=== PATIENT | female | born 1965 | race Caucasian/White ===

== ENCOUNTER 2022-02-21 02:29 | Inpatient (IN) ==
[2022-02-21] MEDS ORDERED: ONDANSETRON 4 MG/2 ML VIAL IV STA (02:49)
[2022-02-21] MEDS ORDERED: PANTOPRAZOLE 40 MG VIAL IV STA (02:49)
[2022-02-21] MEDS ORDERED: SODIUM CHLORIDE 0.9% 2,000 ML IV STA (02:49)
[2022-02-21 03:37] LABS: Bacteria,Urine Occasional /HPF (Few); Glucose,Urine (UA) 100 mg/dL (Negative); Hyaline Casts,Urine 17 /LPF (0-3); Ketones,Urine 15 mg/dL (Negative); Mucus,Urine Few /LPF (Occasional); Nitrite,Urine Positive (Negative); Protein,Urine 30 mg/dL (Negative); RBC,Urine 1 /HPF (0-4); Squamous Epithelial Cell,Urine Occasional /HPF (0-10); Urine Appearance Slightly Cloudy (Clear); Urine Color DK (Yellow)
[2022-02-21 03:38] LABS: Bilirubin,Urine Moderate mg/dL (Negative); Blood, Urine Trace mg/dL (Negative)
[2022-02-21 03:50] LABS: Hemoglobin 11.7 GM/DL (12.0-16.0); Immature Granulocytes % 0.5 %; Immature Granulocytes Absolute 0.01 #; Lymphocytes # 0.6 10*3/uL (1.4-4.0); Lymphocytes % 30.1 % (21.3-54.2); Mean Corpuscular HGB Conc 29.2 GM/DL (32-36); Mean Corpuscular Volume 106.9 FL (87-102); Mean Platelet Volume 12.1 FL (9.6-12.0); Monocytes # 0.1 10*3/uL (0.11-0.8); Monocytes % 5.2 % (1.7-12.7); Neutrophils % 63.2 % (38.7-73.9); Platelet Count 81 T/CUMM (130-400); Red Blood Count 3.75 MC/CUMM (3.8-5.5); Red Cell Distribution Width 14.6 % (9.3-17.3); White Blood Count 1.9 T/CUMM (4-12)
[2022-02-21 03:50] LABS: Barbiturates Screen,Urine Negative (Negative); Benzodiazepines Screen,Urine Negative (Negative); Cannabinoid Screen,Urine Negative (Negative); Opiate Screen,Urine Positive (Negative); Phencyclidine Screen,Urine Negative (Negative)
[2022-02-21] MEDS ORDERED: SODIUM CHLORIDE 0.9% 1,700 ML IV ONE (03:50)
[2022-02-21 03:51] LABS: Hematocrit 40.1 VOL% (35.7-47.0)
[2022-02-21 03:55] LABS: Alanine Aminotransferase 25 U/L (13-56); Albumin 2.6 G/DL (3.4-5.0); Alkaline Phosphatase 74 U/L (45-117); Amylase 34 U/L (25-115); Aspartate Amino Transferase 39 U/L (0-37); Blood Urea Nitrogen 23 MG/DL (7-18); Calcium 8.5 MG/DL (8.5-10.1); Carbon Dioxide 18 MMOL/L (21-32); Chloride 109 MMOL/L (98-107); Glucose 114 MG/DL (74-106); Osmolality,Calculated 281.5 MOS/KG (273-304); Potassium 3.6 MMOL/L (3.5-5.1); Sodium 139 MMOL/L (136-145)
[2022-02-21 03:57] LABS: Band Neutrophils 8 % (0-10); Eosinophils 1 % (0-10); Lymphocytes 30 % (20-55); Total Cells Counted 100
[2022-02-21 03:58] LABS: Giant Platelets Few; Platelet Estimate Decreased
[2022-02-21 03:59] LABS: Macrocytosis Slight
[2022-02-21] MEDS ORDERED: PIPERACILLIN/TAZOBACTAM 3,375 MG in SODIUM CHLORIDE 0.9% 100 ML IV SCH ×2 (04:00→12:00)
[2022-02-21] MEDS ORDERED: MAGNESIUM SULF RIDER 2 GM/50 ML PREMIX IV STA (04:00)
[2022-02-21 04:18] LABS: INR 1.5; PT Patient Result 15.7 SECS (10.5-12.0)
[2022-02-21] MEDS ORDERED: GLUCAGON 1 MG VIAL IM PRN (05:24)
[2022-02-21] MEDS ORDERED: ONDANSETRON 4 MG/2 ML VIAL IV PRN (05:24)
[2022-02-21] MEDS ORDERED: ACETAMINOPHEN 325 MG TABLET PO PRN (05:24)
[2022-02-21] MEDS ORDERED: DEXTROSE 10% 250 ML BAG IV PRN ×2 (05:24→15:42)
[2022-02-21 05:30] LABS: Arterial Base Excess iSTAT -13 MMOL/L (-2.5-2.5); Arterial Bicarbonate iSTAT 10.8 MMOL/L (20-26); Arterial O2 Saturation iSTAT 91 % (95-100); Arterial PCO2 iSTAT 20 MM HG (35-48); Arterial PO2 iSTAT 63 MM HG (80-95); Arterial Total CO2 iSTAT 11 MMO/L (23-27); Arterial pH iSTAT 7.335 (7.35-7.45)
[2022-02-21] MEDS ORDERED: SODIUM CHLORIDE 0.9% 1,000 ML IV SCH (05:30)
[2022-02-21 05:34] LABS: Hepatitis B Core IgM Quant < 0.05 Index; Hepatitis B Surface Ag Quant < 0.10 Index; Hepatitis B Surface Ag Result Non-Reactive (NonReactive); Hepatitis C Virus Ab Quant > 11.00 Index; Hepatitis C Virus Ab Result Reactive (NonReactive)
[2022-02-21] MEDS ORDERED: SODIUM BICARBONATE 50 MEQ/50 ML VIAL IV ONE ×6 (06:24→17:12)
[2022-02-21] MEDS ORDERED: VANCOMYCIN INJ 1,000 MG in SODIUM CHLORIDE 0.9% 250 ML IV SCH (09:00)
[2022-02-21] MEDS ORDERED: ETOMIDATE 20 MG/10 ML VIAL IV ONE (09:51)
[2022-02-21] MEDS ORDERED: ROCURONIUM 100 MG/10 ML VIAL IV ONE (09:52)
[2022-02-21] MEDS ORDERED: METOPROLOL TARTRATE 5 MG/5 ML VIAL IV ONE (09:53)
[2022-02-21] MEDS ORDERED: ceFAZolin 2,000 MG/50 ML DUPLEX IV SCH (10:30)
[2022-02-21] MEDS ORDERED: MIDAZOLAM 100 MG in SODIUM CHLORIDE 0.9% 80 ML IV PRN (10:53)
[2022-02-21 11:45] LABS: ABG Base Excess -13.5 MMOL/L (-2.5-2.5); ABG HCO3 13.9 MMOL/L (20-26); ABG Oxygen Saturation 97.1 % (95-100); ABG PH 7.224 (7.35-7.45); ABG PO2 99.3 MM HG (80-95); ABG TCO2 12.3 MMOL/L (23-27)
[2022-02-21] MEDS: PHENYLEPHRINE DRIP 40 MG/250 ML PREMIX IV PRN ×3 (12:45→17:30)
[2022-02-21] MEDS: VANCOMYCIN 50 MG/ML 60 ML/BOTTLE NG SCH ×2 (13:00→19:01)
[2022-02-21] MEDS: metroNIDAZOLE INJ 500 MG/100 ML PREMIX IV SCH ×2 (13:30→21:32)
[2022-02-21] MEDS: SODIUM BICARB INJ 150 MEQ in STERILE WATER INJ 850 ML IV SCH (14:00)
[2022-02-21] MEDS ORDERED: NOREPINEPHRINE 4 MG/4 ML VIAL IV ONE ×2 (14:14→18:56)
[2022-02-21] MEDS: NOREPINEPHRINE 8 MG in SODIUM CHLORIDE 0.9% 242 ML IV PRN ×2 (14:15→18:57)
[2022-02-21] MEDS ORDERED: SODIUM CHLORIDE 0.9% 500 ML IV ONE (14:17)
[2022-02-21 14:24] LABS: ABG Base Excess -14.8 MMOL/L (-2.5-2.5); ABG Oxygen Saturation 83.6 % (95-100); ABG PCO2 29.2 MM HG (35-48); ABG PO2 53.7 MM HG (80-95); ABG TCO2 11.1 MMOL/L (23-27); Hemoglobin Heart Surgery 10.4 G/DL (12.0-16.0); Potassium Heart/CVR 4.2 MMOL/L (3.5-5.1)
[2022-02-21] MEDS ORDERED: DEXTROSE 50% 25 GM/50 ML SYRINGE IV ONE ×4 (14:31→19:15)
[2022-02-21] MEDS: HYDROCORTISONE 100 MG VIAL IV SCH ×3 (14:35→20:25)
[2022-02-21] MEDS ORDERED: HYDROCORTISONE 100 MG VIAL IV SCH (15:00)
[2022-02-21 15:04] LABS: Arterial Bicarbonate iSTAT 16.5 MMOL/L (20-26); Arterial pH iSTAT 7.236 (7.35-7.45)
[2022-02-21 16:52] LABS: ABG Base Excess -17.4 MMOL/L (-2.5-2.5); ABG HCO3 11.3 MMOL/L (20-26); ABG Oxygen Saturation 90.1 % (95-100); ABG PCO2 37.1 MM HG (35-48); ABG PO2 72.5 MM HG (80-95); ABG TCO2 11.1 MMOL/L (23-27)
[2022-02-21 16:56] LABS: ABG PH 7.101 (7.35-7.45)
[2022-02-21] MEDS ORDERED: POTASSIUM CHLORIDE RIDER 10 MEQ/100 ML PREMIX IV PRN (17:03)
[2022-02-21] MEDS ORDERED: EPINEPHrine 1 MG/10 ML SYRINGE ONE (17:13)
[2022-02-21] MEDS: ALBUMIN 25% 25 GM/100 ML VIAL IV SCH (17:16)
[2022-02-21] MEDS ORDERED: POTASSIUM CHLORIDE RIDER 20 MEQ/100 ML PREMIX IV PRN (17:17)
[2022-02-21] MEDS ORDERED: PHENYLEPHRINE INJ 80 MG in SODIUM CHLORIDE 0.9% 242 ML IV PRN ×2 (17:48→18:00)
[2022-02-21] MEDS ORDERED: DEXTROSE 10% 1,000 ML IV SCH (19:00)
[2022-02-21] MEDS ORDERED: DEXTROSE 50% 25 GM/50 ML VIAL IV PRN (19:00)
[2022-02-21] MEDS ORDERED: VASOPRESSIN 100 UNITS in SODIUM CHLORIDE 0.9% 95 ML IV PRN (19:02)
[2022-02-21 19:04] LABS: Calcium 6.7 MG/DL (8.5-10.1); Osmolality,Calculated 294.3 MOS/KG (273-304)
[2022-02-21] MEDS: DEXTROSE 50% 25 GM/50 ML SYRINGE IV PRN ×2 (19:11→19:12)
[2022-02-21] MEDS: DEXTROSE 10% 1,000 ML IV SCH (19:12)
[2022-02-21] MEDS ORDERED: CALCIUM CHLORIDE 1,000 MG/10 ML SYRINGE IV ONE ×3 (19:12→19:30)
[2022-02-21] MEDS ORDERED: LEVOFLOXACIN INJ 500 MG/100 ML PREMIX IV SCH (20:00)
[2022-02-21 21:08] LABS: Calcium 8.9 MG/DL (8.5-10.1); Osmolality,Calculated 299.4 MOS/KG (273-304); Potassium 3.4 MMOL/L (3.5-5.1)
[2022-02-21] MEDS: NOREPINEPHRINE 16 MG in SODIUM CHLORIDE 0.9% 234 ML IV PRN (21:37)
[2022-02-21] MEDS ORDERED: SODIUM CHLORIDE 0.9% 1,000 ML IV ONE (23:05)
[2022-02-21 23:46] LABS: Calcium 8.3 MG/DL (8.5-10.1); Potassium 4.3 MMOL/L (3.5-5.1)
[2022-02-21 23:48] LABS: Osmolality,Calculated 290.7 MOS/KG (273-304)
[2022-02-21] MEDS: PHENYLEPHRINE INJ 160 MG in SODIUM CHLORIDE 0.9% 234 ML IV PRN (23:50)
[2022-02-22] MEDS ORDERED: DEXTROSE 50% 25 GM/50 ML SYRINGE IV PRN (00:02)
[2022-02-22] MEDS: DEXTROSE 50% 25 GM/50 ML SYRINGE IV PRN ×4 (00:12→16:53)
[2022-02-22] MEDS: VANCOMYCIN 50 MG/ML 60 ML/BOTTLE NG SCH ×3 (00:49→11:44)
[2022-02-22] MEDS ORDERED: MORPHINE 2 MG/1 ML SYRINGE IV PRN (01:45)
[2022-02-22] MEDS: ALBUMIN 25% 25 GM/100 ML VIAL IV SCH ×3 (02:00→17:34)
[2022-02-22] MEDS: NOREPINEPHRINE 16 MG in SODIUM CHLORIDE 0.9% 234 ML IV PRN ×4 (02:14→19:46)
[2022-02-22 03:43] LABS: ABG Base Excess -19.2 MMOL/L (-2.5-2.5); ABG PCO2 23.9 MM HG (35-48); ABG TCO2 8.1 MMOL/L (23-27)
[2022-02-22 03:44] LABS: ABG PH 7.154 (7.35-7.45)
[2022-02-22] MEDS: HYDROCORTISONE 100 MG VIAL IV SCH ×4 (03:47→21:01)
[2022-02-22] MEDS: SODIUM BICARB INJ 150 MEQ in STERILE WATER INJ 850 ML IV SCH (03:48)
[2022-02-22 04:07] LABS: Albumin 2.5 G/DL (3.4-5.0); Bilirubin,Total 8.2 MG/DL (0.20-1.00); Calcium 7.6 MG/DL (8.5-10.1); Osmolality,Calculated 289.7 MOS/KG (273-304); Total Protein 4.7 G/DL (6.4-8.2)
[2022-02-22] MEDS ORDERED: SODIUM BICARBONATE 50 MEQ/50 ML VIAL IV ONE ×4 (04:10→19:49)
[2022-02-22 04:27] LABS: Basophils % 0.4 % (0.0-0.8); Eosinophils % 0.6 % (0.00-10.9); Hemoglobin 7.7 GM/DL (12.0-16.0); Immature Granulocytes % 2.6 %; Immature Granulocytes Absolute 0.12 #; Lymphocytes # 0.9 10*3/uL (1.4-4.0); Lymphocytes % 19.7 % (21.3-54.2); Mean Corpuscular Volume 115.1 FL (87-102); Mean Platelet Volume 14.4 FL (9.6-12.0); Monocytes # 0.3 10*3/uL (0.11-0.8); Monocytes % 6.4 % (1.7-12.7); NRBC # 0.31 10*3/uL; Neutrophils % 70.3 % (38.7-73.9); Red Blood Count 2.39 MC/CUMM (3.8-5.5); Red Cell Distribution Width 15.2 % (9.3-17.3); White Blood Count 4.7 T/CUMM (4-12)
[2022-02-22 04:28] LABS: Platelet Count 24 T/CUMM (130-400)
[2022-02-22 04:29] LABS: Hematocrit 27.5 VOL% (35.7-47.0)
[2022-02-22 04:45] LABS: Band Neutrophils 7 % (0-10); Eosinophils 1 % (0-10); Lymphocytes 25 % (20-55); Myelocytes 1 %; Nucleated Red Blood Cells 4 (0-5); Platelet Estimate Decreased; Total Cells Counted 100
[2022-02-22 04:46] LABS: Burr Cells Slight
[2022-02-22] MEDS ORDERED: SODIUM CHLORIDE 0.9% 1,000 ML IV PRN ×2 (05:03→17:03)
[2022-02-22 05:40] LABS: Glucose Heart Surgery 5 MG/DL (74-106)
[2022-02-22] MEDS: metroNIDAZOLE INJ 500 MG/100 ML PREMIX IV SCH (06:18)
[2022-02-22] MEDS: PHENYLEPHRINE INJ 160 MG in SODIUM CHLORIDE 0.9% 234 ML IV PRN (08:24)
[2022-02-22] MEDS ORDERED: PANTOPRAZOLE 40 MG VIAL IV SCH (09:00)
[2022-02-22] MEDS ORDERED: SODIUM BICARB INJ 150 MEQ in DEXTROSE 5% 850 ML IV SCH (09:00)
[2022-02-22] MEDS ORDERED: MEROPENEM 500 MG in SODIUM CHLORIDE 0.9% 100 ML IV SCH (09:30)
[2022-02-22] MEDS ORDERED: SODIUM BICARB INJ 150 MEQ in DEXTROSE 5% 1,000 ML IV SCH (09:30)
[2022-02-22] MEDS: DEXTROSE 10% 1,000 ML IV SCH ×4 (11:05→21:12)
[2022-02-22] MEDS: VANCOMYCIN INJ 500 MG, SODIUM CHLORIDE 0.9% 100 ML RECTAL SCH ×2 (13:19→17:20)
[2022-02-22 14:34] LABS: Albumin 2.4 G/DL (3.4-5.0); Bilirubin,Total 8.6 MG/DL (0.20-1.00); Calcium 6.7 MG/DL (8.5-10.1); Potassium 5.2 MMOL/L (3.5-5.1); Total Protein 4.2 G/DL (6.4-8.2)
[2022-02-22] MEDS ORDERED: SODIUM BICARBONATE 50 MEQ/50 ML SYRINGE IV ONE (15:31)
[2022-02-22 16:52] LABS: Amylase,Peritoneal Fluid 25 U/L; Glucose,Peritoneal Fluid 6 MG/DL; LDH,Peritoneal Fluid 2673 U/L
[2022-02-22 17:36] LABS: INR 4.7; Partial Thromboplastin Time 98.2 SECS (23.8-32.1)
[2022-02-22 17:42] LABS: RBC,Pleural Fluid 6288 T/CUMM
[2022-02-22 17:43] LABS: Lymphocytes,Pleural Fluid 84 %; Neutrophils,Pleural Fluid 15 %
[2022-02-22 17:49] LABS: Monocytes,Pleural Fluid 1 %
[2022-02-22 17:54] LABS: Bilirubin,Total 6.7 MG/DL (0.20-1.00); Calcium 6.5 MG/DL (8.5-10.1); Potassium 5.7 MMOL/L (3.5-5.1); Total Protein 3.5 G/DL (6.4-8.2)
[2022-02-22 17:59] LABS: PT Patient Result 46.5 SECS (10.5-12.0)
[2022-02-22] MEDS ORDERED: PHYTONADIONE 10 MG/1 ML AMP SUBCUT ONE (18:30)
[2022-02-22 19:43] LABS: ABG Base Excess -25.7 MMOL/L (-2.5-2.5); ABG HCO3 5.6 MMOL/L (20-26); ABG Oxygen Saturation 91.7 % (95-100); ABG PCO2 28.6 MM HG (35-48); ABG PO2 92.6 MM HG (80-95); ABG TCO2 5.5 MMOL/L (23-27)
[2022-02-22 19:45] LABS: ABG PH 6.864 (7.35-7.45)
[2022-02-22 22:02] VITALS: BP 100/38
[2022-02-22 22:18] LABS: ABG HCO3 4.6 MMOL/L (20-26); ABG Oxygen Saturation 92.7 % (95-100); ABG PCO2 27.9 MM HG (35-48); ABG TCO2 4.7 MMOL/L (23-27)
[2022-02-22 22:20] LABS: ABG PH 6.787 (7.35-7.45)
[2022-02-23] MEDS ORDERED: LEVOFLOXACIN INJ 500 MG/100 ML PREMIX IV SCH (09:00)
== END 2022-02-22 23:12 | disposition expired | DRG 871 ==
LOC: SUATTDRO → N.ED 02:29 → N.EDINP 05:24 → SUATTDRO 05:24 → N.EDINP 10:27 → N.ICU 10:47
PROVIDERS: ADMIT Family Medicine; ATTEND Internal Medicine